=== PATIENT | female | born 1955 | race African-American/Black ===

== ENCOUNTER 2017-05-19 08:08 | Emergency (ER) | payer BC, OTHER ==
[~2017-05-19] VITALS: Ht 170.2 cm; Wt 79.5 kg
[2017-05-19] MEDS ORDERED: METHOCARBAMOL 750 MG TABLET ONE (08:51)
[2017-05-19] MEDS ORDERED: KETOROLAC 30 MG/1 ML ONE (08:51)
[2017-05-19] MEDS ORDERED: KETOROLAC 30 MG/1 ML IM ONE (09:00)
[2017-05-19] MEDS ORDERED: METHOCARBAMOL 750 MG TABLET PO ONE (09:00)
[2017-05-19 09:52] VITALS: BP 148/80
== END 2017-05-19 11:44 | disposition home or self-care (01) ==
LOC: ED 10:56
DX: M51.36 Other intervertebral disc degeneration, lumbar region (principal); M47.9 Spondylosis, unspecified
CPT/HCPCS: 72148; 96372; 99284; J1885

== ENCOUNTER 2020-05-12 18:27 | Emergency (ER) | payer SELFPAY ==
[~2020-05-12] VITALS: Ht 170.2 cm; Wt 83.7 kg
[2020-05-12 18:52] VITALS: BP 118/95
== END 2020-05-12 21:13 | disposition home or self-care (01) ==
LOC: ED 20:34
DX: S83.412A Sprain of medial collateral ligament of left knee, initial encounter (principal); X50.0XXA Overexertion from strenuous movement or load, initial encounter; Y93.89 Activity, other specified; Y92.410 Unspecified street and highway as the place of occurrence of the external cause; Y99.8 Other external cause status
CPT/HCPCS: 29505; 99283